=== PATIENT | female | born 1990 | race Caucasian/White ===

== ENCOUNTER 2022-09-04 05:45 | Inpatient (IN) ==
[2022-09-04] MEDS ORDERED: METHYLERGONOVINE 0.2 MG/1 ML AMP IM PRN (05:53)
[2022-09-04] MEDS ORDERED: TRANEXAMIC ACID 1,000 MG in SODIUM CHLORIDE 0.9% 100 ML IV PRN (05:53)
[2022-09-04] MEDS ORDERED: ONDANSETRON 4 MG/2 ML VIAL IV PRN ×2 (05:53→15:46)
[2022-09-04] MEDS ORDERED: CARBOPROST TROMETHAMINE 250 MCG/ML AMP IM PRN (05:53)
[2022-09-04] MEDS ORDERED: OXYTOCIN/LR 20 UNIT/1,000 ML BAG IV ONE ×3 (05:53→15:46)
[2022-09-04] MEDS ORDERED: miSOPROStoL 200 MCG TABLET RECTAL PRN (05:53)
[2022-09-04] MEDS ORDERED: LACTATED RINGERS 1,000 ML IV SCH ×2 (06:00→16:00)
[2022-09-04] MEDS ORDERED: FAMOTIDINE 20 MG/2 ML VIAL IV ONE (06:15)
[2022-09-04] MEDS ORDERED: ceFAZolin 2,000 MG/50 ML DUPLEX IV ONE (06:15)
[2022-09-04] MEDS ORDERED: CITRIC ACID/SODIUM CITRATE 30 ML UDCUP PO ONE ×2 (06:15→07:13)
[2022-09-04 06:23] LABS: Basophils % 0.5 % (0.0-0.8); Eosinophils # 0.1 10*3/uL (0.0-0.87); Eosinophils % 1.2 % (0.00-10.9); Hematocrit 33.4 VOL% (35.7-47.0); Hemoglobin 11.2 GM/DL (12.0-16.0); Immature Granulocytes % 0.5 %; Immature Granulocytes Absolute 0.04 #; Lymphocytes # 2.1 10*3/uL (1.4-4.0); Lymphocytes % 26.3 % (21.3-54.2); Mean Corpuscular HGB Conc 33.5 GM/DL (32-36); Mean Corpuscular Volume 98.8 FL (87-102); Mean Platelet Volume 11.5 FL (9.6-12.0); Monocytes # 0.7 10*3/uL (0.11-0.8); Monocytes % 8.6 % (1.7-12.7); Neutrophils % 62.9 % (38.7-73.9); Platelet Count 145 T/CUMM (130-400); Red Blood Count 3.38 MC/CUMM (3.8-5.5); Red Cell Distribution Width 12.4 % (9.3-17.3); White Blood Count 8.1 T/CUMM (4-12)
[2022-09-04 06:37] LABS: Albumin 2.7 G/DL (3.4-5.0); Bilirubin,Total 0.4 MG/DL (0.20-1.00); Calcium 8.8 MG/DL (8.5-10.1); Osmolality,Calculated 276.3 MOS/KG (273-304); Potassium 3.3 MMOL/L (3.5-5.1); Total Protein 6.7 G/DL (6.4-8.2)
[2022-09-04] MEDS ORDERED: PHENYLEPHRINE 1 MG/10 ML SYRINGE IV ONE (06:39)
[2022-09-04] MEDS ORDERED: buprenorphine HCL 0.3 MG/ML VIAL ONE (06:39)
[2022-09-04] MEDS ORDERED: ONDANSETRON 4 MG/2 ML VIAL ONE (06:39)
[2022-09-04] MEDS ORDERED: KETOROLAC 30 MG/1 ML VIAL ONE (06:43)
[2022-09-04 08:09] LABS: INR 0.9; PT Patient Result 9.6 SECS (10.1-12.1); Partial Thromboplastin Time 25.7 SECS (23.7-32.9)
[2022-09-04] MEDS ORDERED: OXYTOCIN/LR 30 UNIT/1,000 ML BAG IV ONE (08:30)
[2022-09-04] MEDS ORDERED: OXYTOCIN 10 UNIT/ML VIAL IM ONE (08:30)
[2022-09-04] MEDS ORDERED: LACTATED RINGERS 1,000 ML IV ONE (10:53)
[2022-09-04 11:05] LABS: Bacteria,Urine Occasional /HPF (Few); Mucus,Urine Occasional /LPF (Occasional); RBC,Urine 2 /HPF (0-4)
[2022-09-04 11:06] LABS: Bilirubin,Urine Negative (Negative); Blood, Urine Negative (Negative); Glucose,Urine (UA) Negative (Negative); Ketones,Urine 15 mg/dL (Negative); Nitrite,Urine Negative (Negative); Protein,Urine Negative (Negative); Urine Appearance Clear (Clear); Urine Color Yellow (Yellow); Urine Specific Gravity 1.015 (1.001-1.035); Urine Urobilinogen 0.2 eU/dL (<2.0)
[2022-09-04 11:15] LABS: Cord Venous Blood HCO3 22.8 MMOL/L; Cord Venous Blood PCO2 45.8 MMHG; Cord Venous Blood PO2 31.6
[2022-09-04] MEDS ORDERED: ACETAMINOPHEN 500 MG TABLET PO PRN (14:00)
[2022-09-04] MEDS ORDERED: ACETAMINOPHEN 500 MG TABLET PO SCH (14:30)
[2022-09-04] MEDS ORDERED: RHO(D) IMMUNE GLOBULIN 300 MCG SYRINGE IM ONE (15:46)
[2022-09-04] MEDS ORDERED: ACETAMINOPHEN 325 MG TABLET PO PRN (15:46)
[2022-09-04] MEDS ORDERED: DEXTROSE 10% 250 ML BAG IV PRN (15:46)
[2022-09-04] MEDS ORDERED: GLUCAGON 1 MG VIAL IM PRN (15:46)
[2022-09-04] MEDS ORDERED: IBUPROFEN 800 MG TABLET PO PRN (15:46)
[2022-09-04] MEDS ORDERED: INSULIN REGULAR 100 UNIT/ML SUBCUT SCH (16:00)
[2022-09-04] MEDS ORDERED: ACETAMINOPHEN 500 MG TABLET ONE (16:02)
[2022-09-04] MEDS: ACETAMINOPHEN 500 MG TABLET PO SCH ×2 (16:08→22:18)
[2022-09-04] MEDS: KETOROLAC 30 MG/1 ML VIAL IV SCH ×2 (16:08→22:20)
[2022-09-04] MEDS ORDERED: KETOROLAC 30 MG/1 ML VIAL IV PRN (17:00)
[2022-09-04] MEDS ORDERED: KETOROLAC 30 MG/1 ML VIAL IV SCH (17:00)
[2022-09-04] MEDS: INSULIN REGULAR 100 UNIT/ML SUBCUT SCH (17:04)
[2022-09-04] MEDS: DOCUSATE SODIUM 100 MG CAPSULE PO SCH (22:18)
[2022-09-04 23:00] LABS: Basophils # 0.1 10*3/uL (0.0-0.2); Basophils % 0.4 % (0.0-0.8); Eosinophils % 0.2 % (0.00-10.9); Hematocrit 29.7 VOL% (35.7-47.0); Immature Granulocytes % 0.4 %; Immature Granulocytes Absolute 0.05 #; Lymphocytes # 1.8 10*3/uL (1.4-4.0); Lymphocytes % 13.5 % (21.3-54.2); Mean Corpuscular HGB Conc 33.7 GM/DL (32-36); Mean Platelet Volume 11.7 FL (9.6-12.0); Monocytes # 0.9 10*3/uL (0.11-0.8); Neutrophils % 78.5 % (38.7-73.9); Platelet Count 136 T/CUMM (130-400); Red Cell Distribution Width 12.3 % (9.3-17.3); White Blood Count 13.1 T/CUMM (4-12)
[2022-09-05] MEDS: ACETAMINOPHEN 500 MG TABLET PO SCH ×2 (04:55→10:00)
[2022-09-05] MEDS: KETOROLAC 30 MG/1 ML VIAL IV SCH ×2 (04:56→13:03)
[2022-09-05 05:47] LABS: Basophils # 0.1 10*3/uL (0.0-0.2); Basophils % 0.5 % (0.0-0.8); Eosinophils # 0.2 10*3/uL (0.0-0.87); Eosinophils % 1.5 % (0.00-10.9); Hematocrit 28.8 VOL% (35.7-47.0); Hemoglobin 9.7 GM/DL (12.0-16.0); Immature Granulocytes % 0.4 %; Immature Granulocytes Absolute 0.04 #; Lymphocytes # 2.6 10*3/uL (1.4-4.0); Mean Corpuscular HGB Conc 33.7 GM/DL (32-36); Mean Corpuscular Volume 99.3 FL (87-102); Mean Platelet Volume 11.4 FL (9.6-12.0); Monocytes # 0.9 10*3/uL (0.11-0.8); Monocytes % 8.3 % (1.7-12.7); Neutrophils % 65.3 % (38.7-73.9); Platelet Count 138 T/CUMM (130-400); Red Cell Distribution Width 12.4 % (9.3-17.3)
[2022-09-05] MEDS ORDERED: POTASSIUM CHLORIDE 20 MEQ TABLET PO SCH (09:00)
[2022-09-05] MEDS: POTASSIUM CHLORIDE 20 MEQ TABLET PO PRN ×3 (10:00→15:25)
[2022-09-05] MEDS: MULTIVITAMIN (PRENATAL) TABLET PO SCH (10:00)
[2022-09-05] MEDS: MAGNESIUM HYDROXIDE SUSP 30 ML UDCUP PO PRN ×2 (10:00→20:43)
[2022-09-05] MEDS: DOCUSATE SODIUM 100 MG CAPSULE PO SCH ×2 (10:00→20:44)
[2022-09-05] MEDS: INSULIN REGULAR 100 UNIT/ML SUBCUT SCH ×2 (13:02→15:51)
[2022-09-05] MEDS: SIMETHICONE CHEW 80 MG TABLET PO PRN (20:43)
[2022-09-06 05:55] LABS: Alanine Aminotransferase 15 U/L (13-56); Alkaline Phosphatase 90 U/L (45-117); Aspartate Amino Transferase 22 U/L (0-37); Bilirubin,Total < 0.39 MG/DL (0.20-1.00); Blood Urea Nitrogen 9 MG/DL (7-18); Calcium 8.3 MG/DL (8.5-10.1); Carbon Dioxide 27 MMOL/L (21-32); Chloride 108 MMOL/L (98-107); Glucose 83 MG/DL (74-106); Osmolality,Calculated 276.4 MOS/KG (273-304); Potassium 3.9 MMOL/L (3.5-5.1); Sodium 140 MMOL/L (136-145); Total Protein 5.2 G/DL (6.4-8.2)
[2022-09-06] MEDS: SIMETHICONE CHEW 80 MG TABLET PO PRN (08:38)
[2022-09-06] MEDS: MAGNESIUM HYDROXIDE SUSP 30 ML UDCUP PO PRN (08:38)
[2022-09-06] MEDS: DOCUSATE SODIUM 100 MG CAPSULE PO SCH (08:38)
[2022-09-06] MEDS: MULTIVITAMIN (PRENATAL) TABLET PO SCH (08:39)
[2022-09-06] MEDS ORDERED: DIPH/TET/ACEL PERT BOOSTER VACCINE 0.5 ML VIAL IM ONE (10:48)
[2022-09-06 13:32] VITALS: BP 154/88
== END 2022-09-06 12:20 | disposition home or self-care (01) | DRG 788 ==
LOC: N.LD 05:45 → N.OB 14:15
PROVIDERS: ADMIT Obstetrics & Gynecology; ATTEND Obstetrics & Gynecology
PROC: LDCSECT (ICD-10-PCS; 2022-09-04 09:30)